=== PATIENT | female | born 1980 | race African-American/Black ===

== ENCOUNTER 2018-03-20 15:57 | Inpatient (IN) ==
[2018-03-20] MEDS ORDERED: DINOPROSTONE 10 MG VAG.INSERT VAG ONE (17:00)
[2018-03-20 17:49] LABS: Basophils % 0.3 % (0.0-0.8); Eosinophils # 0.1 10*3/uL (0.0-0.87); Hematocrit 30.7 VOL% (35.7-47.0); Immature Granulocytes % 0.7 %; Immature Granulocytes Absolute 0.07 #; Lymphocytes # 1.9 10*3/uL (1.4-4.0); Lymphocytes % 18.4 % (21.3-54.2); Mean Corpuscular HGB Conc 32.6 GM/DL (32-36); Mean Corpuscular Hemoglobin 29 PG (27-34); Mean Corpuscular Volume 89.5 FL (87-102); Mean Platelet Volume 9.5 FL (9.6-12.0); Monocytes # 0.9 10*3/uL (0.11-0.8); Monocytes % 8.4 % (1.7-12.7); Neutrophils # 7.2 10*3/uL (1.4-7.4); Neutrophils % 71.2 % (38.7-73.9); Platelet Count 389 T/CUMM (130-400); Red Blood Count 3.43 MC/CUMM (3.8-5.5); White Blood Count 10.1 T/CUMM (4-12)
[2018-03-20] MEDS: LACTATED RINGERS 1,000 ML IV SCH (18:23)
[2018-03-20] MEDS: ONDANSETRON 4 MG/2 ML VIAL IV PRN (21:25)
[2018-03-20] MEDS: MEPERIDINE 50 MG/1 ML VIAL IV PRN (21:25)
[2018-03-21] MEDS: MEPERIDINE 50 MG/1 ML VIAL IV PRN ×3 (00:30→07:27)
[2018-03-21] MEDS: ONDANSETRON 4 MG/2 ML VIAL IV PRN ×2 (03:43→19:10)
[2018-03-21] MEDS: LACTATED RINGERS 1,000 ML IV SCH ×2 (05:16→14:49)
[2018-03-21] MEDS ORDERED: OXYTOCIN/LR 20 UNIT/1,000 ML BAG IV SCH ×2 (06:00→07:00)
[2018-03-21] MEDS ORDERED: CITRIC ACID/SODIUM CITRATE 30 ML UDCUP PO ONE (08:38)
[2018-03-21] MEDS ORDERED: ePHEDrine 50 MG/ML AMP IV PRN (08:38)
[2018-03-21] MEDS ORDERED: LACTATED RINGERS 1,000 ML IV ONE (08:38)
[2018-03-21] MEDS ORDERED: hydrOXYzine HCL 25 MG/1 ML VIAL IM PRN (08:38)
[2018-03-21] MEDS ORDERED: diphenhydrAMINE 50 MG/1 ML VIAL IV PRN ×2 (08:38)
[2018-03-21] MEDS ORDERED: FAMOTIDINE 20 MG/2 ML VIAL IV ONE (08:38)
[2018-03-21] MEDS: fentaNYL 2 MCG/ROPIV 0.2% EPID 150 ML EPIDURAL SCH ×2 (14:14→22:59)
[2018-03-21 14:54] LABS: Apearance,Urine CLEAR (Clear); Bilirubin,Urine Negative (Negative); Blood, Urine Small mg/dL (Negative); Glucose,Urine (UA) 150 mg/dL (Negative); Ketones,Urine 20 mg/dL (Negative); Mucus,Urine Occasional /LPF (Occasional); Nitrite,Urine Negative (Negative); Protein,Urine 100 MG/DL; RBC,Urine 9 /HPF (0-4); Squamous Epithelial Cell,Urine Occasional /HPF (0-10); Urine Color Yellow (Yellow); Urine Specific Gravity 1.019 (1.001-1.035); WBC,Urine 2 /HPF (0-6)
[2018-03-22] MEDS: LACTATED RINGERS 1,000 ML IV SCH ×3 (04:14→22:17)
[2018-03-22] MEDS: fentaNYL 2 MCG/ROPIV 0.2% EPID 150 ML EPIDURAL SCH (04:14)
[2018-03-22] MEDS ORDERED: FAMOTIDINE 20 MG/2 ML VIAL IV ONE (08:14)
[2018-03-22] MEDS ORDERED: CITRIC ACID/SODIUM CITRATE 30 ML UDCUP PO ONE (08:14)
[2018-03-22] MEDS ORDERED: OXYTOCIN/LR 20 UNIT/1,000 ML BAG IV ONE (08:15)
[2018-03-22] MEDS ORDERED: cefOXitin 3,000 MG in SODIUM CHLORIDE 0.9% 100 ML IV ONE (08:40)
[2018-03-22] MEDS ORDERED: OXYTOCIN 10 UNIT/ML VIAL ONE ×2 (09:12→10:07)
[2018-03-22] MEDS ORDERED: TISSUE ADHESIVE 1 EACH APPLICATOR TOP ONE (09:34)
[2018-03-22 09:41] LABS: Cord Arterial Blood HCO3 16.2 MMOL/L
[2018-03-22 09:44] LABS: Cord Venous Blood PO2 18.3
[2018-03-22] MEDS ORDERED: PHENYLEPHRINE 1 MG/10 ML SYRINGE IV ONE (10:06)
[2018-03-22] MEDS ORDERED: LIDOCAINE MPF 2% /EPI 20 ML VIAL ONE (10:07)
[2018-03-22] MEDS ORDERED: fentaNYL 100 MCG/2 ML VIAL ONE (10:07)
[2018-03-22] MEDS ORDERED: MORPHINE 10 MG/10 ML VIAL ONE (10:07)
[2018-03-22] MEDS ORDERED: HYDROmorphone 2 MG/1 ML VIAL IV PRN (11:35)
[2018-03-22 11:59] LABS: Basophils % 0.2 % (0.0-0.8); Eosinophils % 0.1 % (0.00-10.9); Hematocrit 29.7 VOL% (35.7-47.0); Hemoglobin 10.2 GM/DL (12.0-16.0); Immature Granulocytes % 0.7 %; Immature Granulocytes Absolute 0.12 #; Lymphocytes % 5.4 % (21.3-54.2); Mean Corpuscular HGB Conc 34.3 GM/DL (32-36); Mean Corpuscular Hemoglobin 30 PG (27-34); Mean Corpuscular Volume 86.8 FL (87-102); Mean Platelet Volume 9.2 FL (9.6-12.0); Monocytes # 1.8 10*3/uL (0.11-0.8); Monocytes % 10.1 % (1.7-12.7); Neutrophils # 14.7 10*3/uL (1.4-7.4); Neutrophils % 83.5 % (38.7-73.9); Platelet Count 359 T/CUMM (130-400); Red Blood Count 3.42 MC/CUMM (3.8-5.5); Red Cell Distribution Width 14.2 % (9.3-17.3); White Blood Count 17.6 T/CUMM (4-12)
[2018-03-22 12:09] LABS: INR 0.9; PT Patient Result 9.9 SECS; Partial Thromboplastin Time 28.7 SECS (0-40)
[2018-03-22 12:38] LABS: Bilirubin,Total 0.4 MG/DL (0.2-1.0); Calcium 8.5 MG/DL (8.5-10.1); Osmolality,Calculated 273.8 MOS/KG (273-304); Potassium 4.1 MMOL/L (3.5-5.1); Total Protein 5.7 G/DL (6.4-8.3); Uric Acid 3.4 MG/DL (2.6-6.0)
[2018-03-22] MEDS ORDERED: RHO(D) IMMUNE GLOBULIN 300 MCG SYRINGE IM ONE (14:14)
[2018-03-22] MEDS: ONDANSETRON 4 MG/2 ML VIAL IV PRN ×2 (14:35→19:48)
[2018-03-22] MEDS ORDERED: PROMETHAZINE 25 MG/1 ML VIAL IM PRN (14:57)
[2018-03-22] MEDS: ceFAZolin 1,000 MG in SYRINGE 1 EACH IV SCH (17:06)
[2018-03-22] MEDS: SIMETHICONE CHEW 80 MG TABLET PO PRN (19:57)
[2018-03-22] MEDS: IBUPROFEN 800 MG TABLET PO SCH (22:09)
[2018-03-23] MEDS: ceFAZolin 1,000 MG in SYRINGE 1 EACH IV SCH (01:35)
[2018-03-23] MEDS: IBUPROFEN 800 MG TABLET PO SCH ×3 (06:14→22:09)
[2018-03-23 07:13] LABS: Basophils % 0.1 % (0.0-0.8); Eosinophils # 0.2 10*3/uL (0.0-0.87); Eosinophils % 1.1 % (0.00-10.9); Hematocrit 22.6 VOL% (35.7-47.0); Hemoglobin 7.7 GM/DL (12.0-16.0); Immature Granulocytes % 0.7 %; Lymphocytes % 13.2 % (21.3-54.2); Mean Corpuscular HGB Conc 34.1 GM/DL (32-36); Mean Corpuscular Hemoglobin 30 PG (27-34); Mean Corpuscular Volume 86.6 FL (87-102); Mean Platelet Volume 8.7 FL (9.6-12.0); Monocytes # 1.8 10*3/uL (0.11-0.8); NRBC # 0.02 10*3/uL; Neutrophils # 11.1 10*3/uL (1.4-7.4); Neutrophils % 72.9 % (38.7-73.9); Platelet Count 290 T/CUMM (130-400); Red Blood Count 2.61 MC/CUMM (3.8-5.5); Red Cell Distribution Width 14.1 % (9.3-17.3); White Blood Count 15.2 T/CUMM (4-12)
[2018-03-23] MEDS: MULTIVITAMIN (PRENATAL) TABLET PO SCH (09:12)
[2018-03-23] MEDS: SIMETHICONE CHEW 80 MG TABLET PO PRN (09:12)
[2018-03-23] MEDS: MAGNESIUM HYDROXIDE SUSP 30 ML UDCUP PO PRN (09:12)
[2018-03-23] MEDS: DOCUSATE SODIUM 100 MG CAPSULE PO SCH ×2 (09:12→22:09)
[2018-03-24] MEDS: IBUPROFEN 800 MG TABLET PO SCH (06:26)
[2018-03-24] MEDS: MAGNESIUM HYDROXIDE SUSP 30 ML UDCUP PO PRN (09:36)
[2018-03-24] MEDS: DOCUSATE SODIUM 100 MG CAPSULE PO SCH (09:36)
[2018-03-24] MEDS: MULTIVITAMIN (PRENATAL) TABLET PO SCH (09:36)
[2018-03-24] MEDS: SIMETHICONE CHEW 80 MG TABLET PO PRN (09:36)
[2018-03-24 09:54] VITALS: BP 123/68
[2018-03-24] MEDS ORDERED: MEASLES/MUMPS/RUBELLA VACCINE 0.5 ML VIAL SUBCUT ONE (10:28)
== END 2018-03-24 11:55 | disposition home or self-care (01) | DRG 540 ==
LOC: N.LDOUT 15:57 → N.LD 16:01 → N.OB 03-22 14:07
PROVIDERS: ADMIT Obstetrics & Gynecology; ATTEND Obstetrics & Gynecology
PROC: LDCSECT (ICD-10-PCS; ~2018-03-20)